=== PATIENT | male | born 1980 | race American Indian/Alaskan Native ===

== ENCOUNTER 2017-01-30 20:18 | Emergency (ER) | payer SELFPAY ==
[2017-01-30 21:59] VITALS: BP 126/73
--- NOTE | 2017-01-30 22:53 | XRay Report ---
FINAL REPORT EXAM: XR ANKLE 3+V LT HISTORY: left ankle swelling and pain TECHNIQUE: Left ankle, 3 views PRIORS: None. FINDINGS: There is an oblique distal fibular fracture minimally displaced posterolaterally. There is overlying soft tissue swelling. Findings are consistent with a Resendez B type fracture. IMPRESSION: Resendez B distal fibular fracture with very minimal posterolateral displacement.
[2017-01-30] MEDS: NORCO 10/325 PO ONE (23:12)
--- NOTE | 2017-01-30 23:32 | Emergency Department Report ---
ED Lower Extremity HPI - General Chief Complaint: Extremity Injury, Lower Stated Complaint: L ANKLE INJURY Time Seen by Provider: 01/30/17 23:04 Source: patient Mode of arrival: Ambulatory Limitations: Physical Limitation - History of Present Illness Initial Comments: pt is a 36 y/o aam who present for left ankle pain and swelling s/p fall and twisting injury practicing martial arts this afternoon. pt now present with pain swelling and decreased ambulation. pain is 7/10 aching exacerbated by attempting weight bearing , pain is relieved by elevation and off loading, Complaint: ankle injury Onset/Timin -: days(s) Injury: Ankle: Left Type of Injury: inversion Place: home Severity: moderate Severity scale (0 -10): 7 Improves With: rest Worsens With: weight bearing, movement, palpation Context: fall, jumping Associated Symptoms: snap/pop sensation, swelling, tingling, able to partially bear weight. denies: numbness - Related Data Previous Rx's Medication Instructions Recorded Last Taken Type Acetaminophen/Codeine [Tylenol 1 tab PO Q6H PRN #30 tab 01/30/17 Unknown Rx /Codeine # 3 tab] Allergies Allergy/AdvReac Type Severity Reaction Status Date / Time No Known Allergies Allergy Unverified 01/30/17 22:01 ED Review of Systems ROS: Stated complaint: L ANKLE INJURY Other details as noted in HPI Constitutional: denies: chills, fever Eyes: denies: eye pain, eye discharge, vision change ENT: denies: ear pain, throat pain Respiratory: denies: cough, shortness of breath, wheezing Cardiovascular: denies: chest pain, palpitations Endocrine: no symptoms reported Gastrointestinal: as per HPI Genitourinary: denies: urgency, dysuria Musculoskeletal: joint swelling (left lateral ankle ), myalgia Skin: denies: rash, lesions Neurological: denies: headache, weakness, paresthesias Psychiatric: denies: anxiety, depression Hematological/Lymphatic: denies: easy bleeding, easy bruising ED Past Medical Hx - Past Medical History Previous Medical History?: No - Surgical History Past Surgical History?: Yes Additional Surgical History: arm and shoulder - Social History Smoking Status: Current Every Day Smoker Substance Use Type: None - Medications Home Medications: Home Medications Medication Instructions Recorded Confirmed Last Taken Type Acetaminophen/Codeine [Tylenol 1 tab PO Q6H PRN #30 tab 01/30/17 Unknown Rx /Codeine # 3 tab] ED Physical Exam - General Limitations: Physical Limitation General appearance: alert, in no apparent distress - Head Head exam: Present: atraumatic, normocephalic - Eye Eye exam: Present: normal appearance - ENT ENT exam: Present: mucous membranes moist - Neck Neck exam: Present: normal inspection - Respiratory Respiratory exam: Present: normal lung sounds bilaterally. Absent: respiratory distress - Cardiovascular Cardiovascular Exam: Present: regular rate, normal rhythm. Absent: systolic murmur, diastolic murmur, rubs, gallop - GI/Abdominal GI/Abdominal exam: Present: soft, normal bowel sounds - Rectal Rectal exam: Present: deferred - Extremities Exam Extremities exam: Present: normal inspection, tenderness, normal capillary refill, joint swelling (left lateral ankle ). Absent: calf tenderness - Expanded Lower Extremity Exam Left Ankle exam: Present: tenderness (left lateral ankle pain with rotation ppepb+2, mild ecchymosis , ), swelling, ecchymosis. Absent: abrasion, laceration, deformity, crepidus, dislocation, erythema, anterior draw sign Foot/Toe exam: Present: tenderness, swelling Neuro vascular tendon exam: Present: no vascular compromise, abnormal 2-point discrimination. Absent: pulse deficit, abnormal cap refill, motor deficit, sensory deficit, tendon deficit, extremity cold to touch, pallor, foot drop, peroneal nerve deficit, significant pain with passive ROM of distal joint Gait: Positive: observed and limited by pain - Back Exam Back exam: Present: normal inspection - Neurological Exam Neurological exam: Present: alert, oriented X3, CN II-XII intact, abnormal gait , reflexes normal. Absent: motor sensory deficit - Expanded Neurological Exam Expanded Patient oriented to: Present: person, place, time Speech: Present: fluid speech Sensory exam: Upper Extremity Light Touch: Normal, Upper Extremity Pin Prick: Normal, Upper Extremity Temperature: Normal, Lower Extremity Pin Prick: Normal, Lower Extremity Temperature: Normal, LE 2 Point Discrimination: Normal Motor strength exam: RUE: 5, LUE: 5, RLE: 5, LLE: 5 DTR: ankle (R): 2+, ankle (L): 2+ Best Eye Response ([place]): (4) open spontaneously Best Motor Response ([place]): (6) obeys commands Best Verbal Response ([place]): (5) oriented [place] Total: 15 - Psychiatric Psychiatric exam: Present: normal affect, normal mood - Skin Skin exam: Present: warm, dry, intact, normal color, ecchymosis (left lateral ankle ). Absent: rash ED Course Vital Signs 01/30/17 21:58 Temperature 99 F Pulse Rate 85 Respiratory 18 Rate Blood Pressure 126/73 [Right] O2 Sat by Pulse 98 Oximetry ED Lower Extremity MDM - Radiology Data Radiology results: image reviewed Wber B Distal Fibular Fracutre with very minimal posterolateral dislacement - Medical Decision Making pt is a 36 y/o aam who present for left ankle pain and swelling s/p fall and twisting injury practicing martial arts this afternoon. pt now present with pain swelling and decreased ambulation. pain is 7/10 aching exacerbated by attempting weight bearing , pain is relieved by elevation and off loading, exam : left lateral ankle swelling mild ecchymosis ppepb+2, pain with rotation, negative james test no numbness , mild tingling no paralysis no gross deformity , xray: mild displace fibula fracture closed, consulted ed attending recommendation posterior splint follow up with Ortho Dr Isbell in 1-2 days, crutches for off loading, splinted as directed, splint check completed for appropriate placement , same noted via 2 finger insertion, [employer] <3 secs bilat , pt given splint care instructions pt verbalized understanding of same including compartment syndrome, pt given crutches demonstrate safe use of same pt for dc to self , with splint crutches, discharge instructions and follow up instructions for orthopedic follow up with Dr. Isbell orthopedics Critical care attestation.: If time is entered above; I have spent that time in minutes in the direct care of this critically ill patient, excluding procedure time. ED Disposition Clinical Impression: Closed fracture of distal fibula Qualifiers: Encounter type: initial encounter Fracture morphology: other fracture Laterality: left Qualified Code(s): S82.832A - Other fracture of upper and lower end of left fibula, initial encounter for closed fracture Disposition: DC-01 TO HOME OR SELFCARE Is pt being admited?: No Does the pt Need Aspirin: No Condition: Good Instructions: Splint Care (ED), Crutch Instructions (ED), Leg Fracture (ED) Prescriptions: Acetaminophen/Codeine [Tylenol /Codeine # 3 tab] 1 tab PO Q6H PRN #30 tab PRN Reason: Pain Referrals: ROSS STEWART MD [Primary Care Provider] - 3-5 Days JESSIE ISBELL MD [Staff Physician] - 3-5 Days Forms: Work/School Release Form(ED) Time of Disposition: 23:46
== END 2017-01-31 00:44 | disposition home or self-care (01) ==
LOC: ED 20:18
DX: S82.832A Other fracture of upper and lower end of left fibula, initial encounter for closed fracture (principal); F17.200 Nicotine dependence, unspecified, uncomplicated; W19.XXXA Unspecified fall, initial encounter; Y93.39 Activity, other involving climbing, rappelling and jumping off; Y99.9 Unspecified external cause status; Y92.009 Unspecified place in unspecified non-institutional (private) residence as the place of occurrence of the external cause

== ENCOUNTER 2017-02-02 09:38 | Emergency (ER) | payer SELFPAY ==
[2017-02-02 09:49] VITALS: BP 146/86
--- NOTE | 2017-02-02 13:09 | Emergency Department Report ---
ED Lower Extremity HPI - General Chief Complaint: Extremity Injury, Lower Stated Complaint: LEFT FOOT PAIN Time Seen by Provider: 02/02/17 13:07 Source: patient, family Mode of arrival: Ambulatory Limitations: No Limitations - History of Present Illness Initial Comments: Patient complain left foot pain. He said he was seen at Dr. Espana's office today and they refused to see him after sustaining an left ankle fracture. He reports his pain is 8 out of 10 and achy and the pain medication today sake it is not outpatient. Patient was seen on 01/30/2017 and was put on Tylenol No. 3. Patient is here reporting that he was told that there is too orthopedic doctor periodontal assistant of the hospital and he is demanding to see one because he needs surgery and orthopedic need to come down and talk to him. Patient medical record from 01/30/2017 reflect that patient sustained Webril B distal fibular fracture with very minimal posterior lateral displacement. He also had some soft tissue swelling. He was placed and posterior splint and referred to Dr. Espana for follow-up visit. He denies any numbness or tingling to extremities. Patient also has crutches in order to no weightbearing to left lower extremity. MD Complaint: ankle injury, other (foot and ankle pain) Injury: Ankle: Left (pain with splint), Foot: Left (pain with splint) Place: home Severity: severe Severity scale (0 -10): 7 Improves With: immobilization, rest Worsens With: weight bearing, movement, palpation Associated Symptoms: unable to bear weight. denies: swelling, numbness, tingling Treatments Prior to Arrival: splint - Related Data Previous Rx's Medication Instructions Recorded Last Taken Type Acetaminophen/Codeine [Tylenol 1 tab PO Q6H PRN #30 tab 01/30/17 Unknown Rx /Codeine # 3 tab] HYDROcodone/ACETAMINOPHEN [Hill 1 each PO Q6H PRN #14 tablet 02/02/17 Unknown Rx 5-325 Tablet] Ibuprofen [Motrin] 600 mg PO Q8H PRN #21 tablet 02/02/17 Unknown Rx Allergies Allergy/AdvReac Type Severity Reaction Status Date / Time No Known Allergies Allergy Unverified 01/30/17 22:01 ED Review of Systems ROS: Stated complaint: LEFT FOOT PAIN Other details as noted in HPI Comment: All other systems reviewed and negative Constitutional: no symptoms reported Respiratory: no symptoms reported Cardiovascular: denies: chest pain, palpitations, dyspnea on exertion, edema, syncope, paroxysmal nocturnal dyspnea Gastrointestinal: denies: abdominal pain, nausea, vomiting, diarrhea, constipation Musculoskeletal: back pain, arthralgia. denies: myalgia Skin: denies: rash Neurological: abnormal gait (due to the ankle injury). denies: headache, weakness, numbness, paresthesias, confusion ED Past Medical Hx - Past Medical History Previous Medical History?: No - Surgical History Past Surgical History?: Yes Additional Surgical History: arm and shoulder - Family History Family history: hypertension - Social History Smoking Status: Never Smoker Substance Use Type: Alcohol - Medications Home Medications: Home Medications Medication Instructions Recorded Confirmed Last Taken Type Acetaminophen/Codeine [Tylenol 1 tab PO Q6H PRN #30 tab 01/30/17 Unknown Rx /Codeine # 3 tab] HYDROcodone/ACETAMINOPHEN [Hill 1 each PO Q6H PRN #14 tablet 02/02/17 Unknown Rx 5-325 Tablet] Ibuprofen [Motrin] 600 mg PO Q8H PRN #21 tablet 02/02/17 Unknown Rx ED Physical Exam - General Limitations: No Limitations General appearance: alert, in no apparent distress - Head Head exam: Present: atraumatic, normocephalic, normal inspection - Eye Eye exam: Present: normal appearance, PERRL, EOMI. Absent: periorbital swelling , periorbital tenderness Pupils: Present: normal accommodation - ENT ENT exam: Present: normal exam, normal orophraynx, mucous membranes moist - Neck Neck exam: Present: normal inspection, full ROM. Absent: tenderness, meningismus, lymphadenopathy, other - Respiratory Respiratory exam: Present: normal lung sounds bilaterally. Absent: respiratory distress, chest wall tenderness - Cardiovascular Cardiovascular Exam: Present: regular rate, normal rhythm, normal heart sounds. Absent: systolic murmur, diastolic murmur - GI/Abdominal GI/Abdominal exam: Present: soft, normal bowel sounds. Absent: distended, tenderness, guarding, rebound, rigid, organomegaly, mass, bruit, pulsatile mass , hernia - Extremities Exam Extremities exam: Present: tenderness, normal capillary refill, joint swelling, other (no clubbing, cyanosis or edema to lower extremity. No Neurovascular compromise. S2 pulses.). Absent: normal inspection, full ROM (Limited range of motion to left lower extremity due to ankle fracture), pedal edema, calf tenderness - Expanded Lower Extremity Exam Left Hip exam: Present: normal inspection, full ROM, pelvic stability. Absent: tenderness, swelling, abrasion, laceration, ecchymosis, deformity, crepidus, dislocation, erythema, external rotation, internal rotation, shortening Upper Leg exam: Present: normal inspection, full ROM. Absent: tenderness, swelling, abrasion, laceration, ecchymosis, deformity, crepidus, dislocation, erythema Knee exam: Present: normal inspection, full ROM, full knee extension. Absent: tenderness, swelling, abrasion, laceration, ecchymosis, deformity, crepidus, dislocation, erythema, effusion, pain w/ pronation/supination, posterior draw sign, pain/laxity with valgus, pain/laxity with varus Lower Leg exam: Present: normal inspection, full ROM. Absent: tenderness, swelling, abrasion, laceration, ecchymosis, deformity, crepidus, dislocation, erythema, palpable cord, Amando's sign Ankle exam: Absent: normal inspection, full ROM (Limited range of motion to the right ankle and foot due to a fracture and splint status), abrasion, laceration , ecchymosis, deformity Foot/Toe exam: Present: normal inspection, full ROM. Absent: tenderness, swelling, abrasion, laceration, ecchymosis, deformity, crepidus, dislocation, erythema, amputation, puncture wound, foreign body, calcaneal tenderness, tenderness at base of 5th metatarsal, nail avulsion, subungual hematoma Neuro vascular tendon exam: Present: no vascular compromise, motor deficit ( past 3/5 strength to ankle on the left side due to fracture), significant pain with passive ROM of distal joint. Absent: pulse deficit, abnormal cap refill, sensory deficit, tendon deficit, extremity cold to touch, pallor, abnormal 2- point discrimination, decreased fine/light touch, foot drop, peroneal nerve deficit Gait: Positive: unable to bear weight (patient has splint to left ankle and use his crutches.) - Neurological Exam Neurological exam: Present: alert, oriented X3, abnormal gait (left ankle injury and fracture), motor sensory deficit (patient has splint and crutches due to left ankle injury and fracture), reflexes normal - Psychiatric Psychiatric exam: Present: normal affect, normal mood - Skin Skin exam: Present: warm, dry, intact, normal color. Absent: rash ED Course Vital Signs 02/02/17 09:47 Temperature 98.5 F Pulse Rate 92 H Respiratory 20 Rate Blood Pressure 146/86 O2 Sat by Pulse 98 Oximetry - Reevaluation(s) Reevaluation #1: 02/02/17 13:44 given Percocet 5/325 2 tablets in emergency room for pain. ED Lower Extremity MDM - Medical Decision Making Ed course: Patient came to the emergency room today requesting to see orthopedic doctor because he said he went to orthopedic office and they would not see him. I spoke with Dr. Espana via phone and he said that patient can come and Sunday or call his office on Sunday for follow-up visit and that patient does not require surgery so he can stay in splint until he is seen by orthopedic. Patient is here that because he said pain medication did not help his pain. Patient was seen on 01/30/2017 and given Tylenol No. 3 No. 30 tablets and also placed and posterior ankle splint. Physical findings related intact neurological status to left foot. I communicated with patient that I spoke with Dr. Espana was orthopedic doctor and he related that patient should call his office on Sunday for follow-up visit. Patient to discontinue Tylenol 3 and start Hill and Motrin and to follow discharge instructions on splint care and no weight bearing to left lower extremity. Chin came in emergency room very angry because he said he went over to Dr. Espana's office and nobody would see him and that they didn't give him enough pain medication and he is in pain and he is demanding to see orthopedic doctor today and that he is not leaving. He is given prescription for no call, Motrin and discharged from emergency room to follow-up with Dr. Espana. Critical care attestation.: If time is entered above; I have spent that time in minutes in the direct care of this critically ill patient, excluding procedure time. ED Disposition Clinical Impression: Arthralgia of ankle, left Closed fracture of left distal fibula Qualifiers: Encounter type: subsequent encounter Fracture morphology: unspecified fracture morphology Fracture healing: with routine healing Qualified Code(s): S82.832D - Other fracture of upper and lower end of left fibula, subsequent encounter for closed fracture with routine healing Disposition: DC-01 TO HOME OR SELFCARE Is pt being admited?: No Does the pt Need Aspirin: No Condition: Stable Instructions: Arthralgia (ED), Ankle Fracture (ED) Additional Instructions: avoid taking Hill if you drive or operate havy machinery as this medication causes drowsiness Please call Dr. Espana office on Sunday and schedule appointment for follow-up visit Continue to use crutches and please do not remove splint Prescriptions: HYDROcodone/ACETAMINOPHEN [Hill 5-325 Tablet] 1 each PO Q6H PRN #14 tablet PRN Reason: Pain , Severe (7-10) Ibuprofen [Motrin] 600 mg PO Q8H PRN #21 tablet PRN Reason: Pain Referrals: JESSIE ESPANA MD [Staff Physician] - 02/05/17 Forms: Work/School Release Form(ED)
[2017-02-02] MEDS ORDERED: PERCOCET 5/325 PO ONE (13:31)
[2017-02-02] MEDS ORDERED: PERCOCET 5/325 ONE (13:35)
== END 2017-02-02 14:16 | disposition home or self-care (01) ==
LOC: ED 09:38
DX: S82.832A Other fracture of upper and lower end of left fibula, initial encounter for closed fracture (principal); X58.XXXA Exposure to other specified factors, initial encounter; Y93.89 Activity, other specified; Y92.89 Other specified places as the place of occurrence of the external cause; Y99.8 Other external cause status
CPT/HCPCS: 99282

== ENCOUNTER 2021-02-15 22:05 | Emergency (ER) | payer SELFPAY ==
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
[2021-02-15 23:18] LABS: Basophils # (Auto) 0.1 K/mm3 (0.0-0.1); Basophils % (Auto) 0.7 % (0.0-1.8); Eosinophils # (Auto) 0.2 K/mm3 (0.0-0.4); Eosinophils % (Auto) 2.2 % (0.0-4.3); Hematocrit 43.9 % (35.5-45.6); Hemoglobin 14.5 gm/dl (11.8-15.2); Lymphocytes # (Auto) 2.7 K/mm3 (1.2-5.4); Lymphocytes % (Auto) 25.4 % (13.4-35.0); Mean Corpuscular HGB Conc 33 % (32-34); Mean Corpuscular Volume 88 fl (84-94); Monocytes # (Auto) 1.2 K/mm3 (0.0-0.8); Monocytes % (Auto) 11.4 % (0.0-7.3); Platelet Count 226 K/mm3 (140-440); Red Blood Count 4.99 M/mm3 (3.65-5.03); Red Cell Distribution Width 13.8 % (13.2-15.2)
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
[2021-02-15 23:37] LABS: Alanine Aminotransferase 16 units/L (7-56); Albumin 3.9 g/dL (3.9-5); BUN/Creatinine Ratio 17; Blood Urea Nitrogen 15 mg/dL (9-20); Calcium 8.8 mg/dL (8.4-10.2); Hemolysis Index 10
[2021-02-16] MEDS ORDERED: ONDANSETRON 4 MG/2 ML INJ IV ONE (01:26)
[2021-02-16] MEDS ORDERED: KETOROLAC 30 MG/1 ML INJ IV ONE (01:26)
[2021-02-16] MEDS ORDERED: MORPHINE 4 MG/1 ML INJ IV ONE (01:26)
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
[2021-02-16 03:20] VITALS: BP 92/56
== END 2021-02-16 03:21 | disposition home or self-care (01) ==
LOC: ED 22:05
DX: S52.501A Unspecified fracture of the lower end of right radius, initial encounter for closed fracture (principal); S60.512A Abrasion of left hand, initial encounter; S20.219A Contusion of unspecified front wall of thorax, initial encounter; R10.819 Abdominal tenderness, unspecified site; S60.511A Abrasion of right hand, initial encounter; S09.90XA Unspecified injury of head, initial encounter; S80.212A Abrasion, left knee, initial encounter; S80.211A Abrasion, right knee, initial encounter; V49.49XA Driver injured in collision with other motor vehicles in traffic accident, initial encounter; Y93.89 Activity, other specified; Y92.89 Other specified places as the place of occurrence of the external cause; Y99.8 Other external cause status
CPT/HCPCS: 29125; 36415; 70450; 71260; 72125; 73110; 74177; 80053; 85025; 96374; 96375; 99285; J1885; J2270; J2405; Q9967; 80320; 99284; G0480